=== PATIENT | male | born 1955 | race Two or more races ===

== ENCOUNTER 2025-03-10 08:32 | Inpatient (IN) | payer OTHER ==
[~2025-03-10] VITALS: Ht 175.3 cm; Wt 68.9 kg
--- NOTE | 2025-03-10 08:47 | NUR ---
SE RECIBE PACIENTE ALERTA Y ORIENTADO X3 EL CUAL REFIERE VENIR A [place] DE QUE [place] ESTADO SUPURANDO POR HERIDA POST QUIRURJICA. PACIENTE NOTIFICA QUE FUE OPERADO POR DR. TEO GARCIA DE REINIER MASA EN EL INTESTIONO EL PASADO 02/22/25. SE MIDEN S/V Y SE UBICA.
[2025-03-10] MEDS ORDERED: PIPERACILLIN/TAZOBACTAM SODIUM 3.375 GM in DEXTROSE 5 % IN WATER 100 ML IV SCH (09:38)
[2025-03-10] MEDS ORDERED: 0.9 % SODIUM CHLORIDE 500 ML IV SCH (09:45)
[2025-03-10] MEDS ORDERED: PIPERACILLIN/TAZOBACTAM SODIUM 3.375 GM VIAL IV STA (10:27)
[2025-03-10] MEDS ORDERED: FAMOTIDINE/PF 20 MG in 0.9 % SODIUM CHLORIDE 8 ML IV PUSH SCH (10:27)
[2025-03-10] MEDS ORDERED: MORPHINE SULFATE 4 MG/ML CARTRIDGE IV PRN (10:30)
[2025-03-10] MEDS ORDERED: 0.9 % SODIUM CHLORIDE 1,000 ML IV SCH (10:30)
[2025-03-10 10:44] LABS: BASO % 0.4 % (0.1-1.2); EOS # 0.03 (0.04-0.54); EOS % 0.2 % (0.7-7.0); LYMPH # 1.70 (1.18-3.74); LYMPH % 10.7 % (19.3-53.1); MEAN PLATELET VOLUME 9.60 fl (9.4-12.4); MONO # 1.25 (0.24-0.82); MONO % 7.8 % (4.7-12.5); NEUT # 12.53 (1.56-6.13); NEUT % 78.6 % (34.0-71.1); RED CELL DISTRIBUTION WIDTH 15.1 % (11.6-14.4)
[2025-03-10 10:53] VITALS: BP 102/60; O2SAT 96
[2025-03-10 11:02] LABS: INR 1.16
[2025-03-10 11:07] LABS: ALT/SGPT 70.0 U/L (12-78); AST/SGOT 65.0 U/L (15-37); BILIRUBIN TOTAL 0.42 mg/dL (0.3-1.2); BUN CREA RATIO 14.0 (7.0-25.0); CREATININE SERUM 0.81 mg/dL (0.70-1.30); GFR 94.76; GLOBULINA 5.7 G/DL (2.4-3.5); GLUCOSE FASTING 131.0 mg/dL (65-100); OSMOLALITY SERUM 271.0 MOSM/KG (275-295)
[2025-03-10 11:15] LABS: URINE APPEARANCE Clear; URINE BILIRRUBIN Negative (NEGATIVE); URINE BLOOD Negative; URINE COLOR Yellow; URINE GLUCOSE Negative (NEGATIVE); URINE KETONE Trace (NEGATIVE); URINE LEUKOCYTE Negative; URINE NITRATE Negative; URINE PROTEIN Trace (NEGATIVE); URINE UROBILINOGEN 1.0 E.U./dl
[2025-03-10 11:19] LABS: URINE BACTERIA 7.1 uL (0.0-1933); URINE CAST 1.90 uL (0.0-1.40); URINE EPITHELIAL CELLS 9.0 uL (0.0-38.8); URINE RBC 9.8 uL (0.0-20.8); URINE WBC 3.3 uL (0.0-23.2)
[2025-03-10 11:42] LABS: COVID-19 AG NEGATIVE (NEGATIVE)
[2025-03-10] MEDS ORDERED: PIPERACILLIN/TAZOBACTAM SODIUM 3.375 GM VIAL IV SCH (12:00)
[2025-03-11 00:49] VITALS: BP 103/58; O2SAT 96
[2025-03-11 07:40] LABS: BASO % 0.8 % (0.1-1.2); EOS # 0.06 (0.04-0.54); EOS % 0.5 % (0.7-7.0); LYMPH # 1.81 (1.18-3.74); LYMPH % 13.9 % (19.3-53.1); MEAN PLATELET VOLUME 9.50 fl (9.4-12.4); MONO # 1.19 (0.24-0.82); MONO % 9.1 % (4.7-12.5); NEUT # 9.57 (1.56-6.13); NEUT % 73.5 % (34.0-71.1); RED CELL DISTRIBUTION WIDTH 15.2 % (11.6-14.4)
[2025-03-11 07:57] LABS: ALT/SGPT 59.0 U/L (12-78); AST/SGOT 44.0 U/L (15-37); BILIRUBIN TOTAL 0.43 mg/dL (0.3-1.2); BUN CREA RATIO 17.0 (7.0-25.0); CREATININE SERUM 0.58 mg/dL (0.70-1.30); GFR 139.33; GLOBULINA 4.2 G/DL (2.4-3.5); GLUCOSE FASTING 91.0 mg/dL (65-100); OSMOLALITY SERUM 274.0 MOSM/KG (275-295)
[2025-03-11 08:00] VITALS: BP 101/64; O2SAT 98
[2025-03-11 08:47] LABS: BASOPHIL MAN 1.0 %; LYMPHOCYTE MAN 18.0 %; MONOCYTE MAN 7.0 %; NEUTROPHILS MAN 73.0 %
[2025-03-11 09:15] LABS: ERYTHROCYTE SEDIMENTATION RATE 92 mm/hr (0-20)
[2025-03-12] VITALS: BP 121/68; O2SAT 97
[2025-03-12 08:00] VITALS: BP 133/74; O2SAT 99
[2025-03-12 10:58] LABS: BUN CREA RATIO 14.0 (7.0-25.0); CHOL HDL RATIO 5.5 (0-5.0); CREATININE SERUM 0.58 mg/dL (0.70-1.30); GFR 139.33; GLUCOSE FASTING 70.0 mg/dL (65-100); HDL 21.0 mg/dl (40-60); LDL 74.0 mg/dl (0-130); OSMOLALITY SERUM 276.0 MOSM/KG (275-295); VLDL 19.0 (0-39)
[2025-03-12 16:00] VITALS: BP 133/71; O2SAT 99
[2025-03-12] MEDS ORDERED: VANCOMYCIN HCL 1,000 MG VIAL IV SCH (17:00)
[2025-03-12] MEDS ORDERED: AA 4.25%/CAL/LYTES/DEXT 5% 1,000 ML PERIFERAL SCH (17:00)
[2025-03-12] MEDS ORDERED: MIDAZOLAM HCL 2 MG/2 ML VIAL IV PUSH ONE (18:15)
[2025-03-12] MEDS ORDERED: fentaNYL CITRATE 50 MCG/ML AMPUL IV PUSH ONE (18:15)
[2025-03-13 01:14] VITALS: BP 130/70; O2SAT 97
[2025-03-13 08:00] VITALS: BP 125/75; O2SAT 95
[2025-03-13 17:12] VITALS: BP 117/70; O2SAT 97
[2025-03-14 02:02] VITALS: BP 106/62; O2SAT 99
[2025-03-14 06:49] LABS: BASO % 0.7 % (0.1-1.2); EOS # 0.08 (0.04-0.54); EOS % 0.8 % (0.7-7.0); LYMPH # 2.09 (1.18-3.74); LYMPH % 20.9 % (19.3-53.1); MEAN PLATELET VOLUME 9.30 fl (9.4-12.4); MONO # 1.03 (0.24-0.82); MONO % 10.3 % (4.7-12.5); NEUT # 6.66 (1.56-6.13); NEUT % 66.6 % (34.0-71.1); RED CELL DISTRIBUTION WIDTH 15.2 % (11.6-14.4)
[2025-03-14 08:00] VITALS: BP 116/69; O2SAT 97
[2025-03-14 17:32] VITALS: BP 124/65; O2SAT 97
[2025-03-15 01:52] VITALS: BP 108/70; O2SAT 97
[2025-03-15] MEDS ORDERED: VANCOMYCIN HCL 1,000 MG VIAL IV SCH (05:00)
[2025-03-15 08:00] VITALS: BP 106/63; O2SAT 99
[2025-03-15] MEDS ORDERED: VANCOMYCIN HCL 5 MG/ML REDILUIDO IV SCH (17:00)
[2025-03-15 18:18] VITALS: BP 116/69; O2SAT 97
[2025-03-16 02:18] VITALS: BP 120/55; O2SAT 98
[2025-03-16 07:00] VITALS: BP 103/59
[2025-03-16 16:00] VITALS: BP 144/66; O2SAT 99
[2025-03-16] MEDS ORDERED: AMPICILLIN SODIUM/SULBACTAM NA 3,000 MG in 0.9 % SODIUM CHLORIDE 100 ML IV SCH (20:00)
[2025-03-16] MEDS ORDERED: CIPROFLOXACIN IN 5 % DEXTROSE 400 MG/200 ML PIGGYBAG IV SCH (21:00)
[2025-03-17 01:59] VITALS: BP 122/66
[2025-03-17 08:00] VITALS: BP 114/69; O2SAT 96
[2025-03-17 16:00] VITALS: BP 130/60; O2SAT 98
[2025-03-18 01:03] VITALS: BP 113/78; O2SAT 97
[2025-03-18 10:37] VITALS: BP 119/70; O2SAT 97
[2025-03-18 16:00] VITALS: BP 115/68; O2SAT 97
[2025-03-19 01:11] VITALS: BP 131/66; O2SAT 97
[2025-03-19 07:02] LABS: BASO % 0.8 % (0.1-1.2); EOS # 0.23 (0.04-0.54); EOS % 2.7 % (0.7-7.0); LYMPH # 1.62 (1.18-3.74); LYMPH % 19.2 % (19.3-53.1); MEAN PLATELET VOLUME 9.20 fl (9.4-12.4); MONO # 0.95 (0.24-0.82); MONO % 11.2 % (4.7-12.5); NEUT # 5.55 (1.56-6.13); NEUT % 65.7 % (34.0-71.1); RED CELL DISTRIBUTION WIDTH 15.8 % (11.6-14.4)
[2025-03-19 07:26] LABS: INR 1.13
[2025-03-19 07:29] LABS: ALT/SGPT 83 U/L (12-78); AST/SGOT 45 U/L (15-37); BILIRUBIN TOTAL 0.23 mg/dL (0.3-1.2); BILIRUBIN,CONJUGATED < 0.10 mg/dL (0.0-0.2); BUN CREA RATIO 16 (7.0-25.0); CHOL HDL RATIO 4.3 (0-5.0); CREATININE SERUM 0.74 mg/dL (0.70-1.30); GFR 105.18; GLOBULINA 4.1 G/DL (2.4-3.5); GLUCOSE FASTING 107 mg/dL (65-100); HDL 32 mg/dl (40-60); LDL 84 mg/dl (0-130); OSMOLALITY SERUM 280 MOSM/KG (275-295); VLDL 21 (0-39)
[2025-03-19 08:00] VITALS: BP 112/65; O2SAT 99
[2025-03-19 09:58] LABS: UREA CLEARANCE 30.7 ML/MIN
[2025-03-19 16:00] VITALS: BP 127/70; O2SAT 99
[2025-03-20 01:19] VITALS: BP 118/68; O2SAT 96
[2025-03-20 08:51] VITALS: BP 144/72; O2SAT 100
[2025-03-20] MEDS ORDERED: DIATRIZOATE MEGLUMINE, SODIUM 30 ML BOTTLE PO NR (09:20)
[2025-03-20 16:00] VITALS: BP 141/82; O2SAT 98
[2025-03-21 00:29] VITALS: BP 114/73; O2SAT 99
[2025-03-21 07:57] LABS: BASO % 1.0 % (0.1-1.2); EOS # 0.17 (0.04-0.54); EOS % 2.4 % (0.7-7.0); LYMPH # 1.21 (1.18-3.74); LYMPH % 17.0 % (19.3-53.1); MEAN PLATELET VOLUME 9.50 fl (9.4-12.4); MONO # 0.85 (0.24-0.82); MONO % 11.9 % (4.7-12.5); NEUT # 4.78 (1.56-6.13); NEUT % 67.1 % (34.0-71.1); RED CELL DISTRIBUTION WIDTH 15.9 % (11.6-14.4)
[2025-03-21 08:39] LABS: BUN CREA RATIO 15.0 (7.0-25.0); CREATININE SERUM 0.88 mg/dL (0.70-1.30); GFR 86.12; GLUCOSE FASTING 103.0 mg/dL (65-100); OSMOLALITY SERUM 278.0 MOSM/KG (275-295)
[2025-03-21 09:37] VITALS: BP 113/64; O2SAT 97
[2025-03-21 17:00] VITALS: BP 131/69; O2SAT 97
[2025-03-22 00:55] VITALS: BP 121/71; O2SAT 100
[2025-03-22 08:00] VITALS: BP 116/69; O2SAT 97
[2025-03-22 16:00] VITALS: BP 148/71; O2SAT 98
[2025-03-23 06:48] LABS: BASO % 0.9 % (0.1-1.2); EOS # 0.14 (0.04-0.54); EOS % 2.1 % (0.7-7.0); LYMPH # 1.11 (1.18-3.74); LYMPH % 16.6 % (19.3-53.1); MEAN PLATELET VOLUME 10.00 fl (9.4-12.4); MONO # 0.78 (0.24-0.82); MONO % 11.7 % (4.7-12.5); NEUT # 4.56 (1.56-6.13); NEUT % 68.1 % (34.0-71.1); RED CELL DISTRIBUTION WIDTH 15.9 % (11.6-14.4)
[2025-03-23 07:28] LABS: BUN CREA RATIO 17.0 (7.0-25.0); CREATININE SERUM 0.72 mg/dL (0.70-1.30); GFR 108.56; GLUCOSE FASTING 121.0 mg/dL (65-100); OSMOLALITY SERUM 277.0 MOSM/KG (275-295)
[2025-03-23 08:00] VITALS: BP 123/73; O2SAT 97
[2025-03-23 18:36] VITALS: BP 121/69; O2SAT 97
[2025-03-24 01:02] VITALS: BP 113/71; O2SAT 97
[2025-03-24 16:00] VITALS: BP 121/71; O2SAT 99
[2025-03-25 01:35] VITALS: BP 131/78; O2SAT 99
[2025-03-25 08:30] VITALS: BP 123/74; O2SAT 99
[2025-03-25 16:00] VITALS: BP 106/56; O2SAT 98
[2025-03-26 00:36] VITALS: BP 134/74; O2SAT 100
[2025-03-26 07:50] LABS: BASO % 1.1 % (0.1-1.2); EOS # 0.09 (0.04-0.54); EOS % 1.5 % (0.7-7.0); LYMPH # 1.37 (1.18-3.74); LYMPH % 22.1 % (19.3-53.1); MEAN PLATELET VOLUME 9.80 fl (9.4-12.4); MONO # 0.69 (0.24-0.82); MONO % 11.1 % (4.7-12.5); NEUT # 3.96 (1.56-6.13); NEUT % 63.9 % (34.0-71.1); RED CELL DISTRIBUTION WIDTH 16.2 % (11.6-14.4)
[2025-03-26 08:17] LABS: INR 1.15
[2025-03-26 08:30] LABS: ALT/SGPT 45 U/L (12-78); AST/SGOT 32 U/L (15-37); BILIRUBIN TOTAL 0.22 mg/dL (0.3-1.2); BILIRUBIN,CONJUGATED < 0.10 mg/dL (0.0-0.2); BUN CREA RATIO 15 (7.0-25.0); CHOL HDL RATIO 3.0 (0-5.0); CREATININE SERUM 0.84 mg/dL (0.70-1.30); GFR 90.87; GLOBULINA 4.5 G/DL (2.4-3.5); GLUCOSE FASTING 124 mg/dL (65-100); HDL 45 mg/dl (40-60); LDL 77 mg/dl (0-130); OSMOLALITY SERUM 275 MOSM/KG (275-295); VLDL 13 (0-39)
[2025-03-26 08:43] LABS: UREA CLEARANCE 45.2 ML/MIN
[2025-03-26 08:53] VITALS: BP 119/74; O2SAT 100
[2025-03-26] MEDS ORDERED: FAMOTIDINE/PF 20 MG in 0.9 % SODIUM CHLORIDE 8 ML IV PUSH SCH (09:41)
[2025-03-26 17:18] VITALS: BP 126/77; O2SAT 100
[2025-03-27 01:52] VITALS: BP 115/71; O2SAT 100
[2025-03-27 08:52] VITALS: BP 132/64; O2SAT 98
[2025-03-27] MEDS ORDERED: DIATRIZOATE MEGLUMINE, SODIUM 30 ML BOTTLE PO NR (09:00)
[2025-03-27 17:27] VITALS: BP 122/63; O2SAT 98
[2025-03-28] VITALS: BP 131/68; O2SAT 98
[2025-03-28 09:19] VITALS: BP 125/73; O2SAT 98
[2025-03-28 17:38] VITALS: BP 126/59; O2SAT 98
[2025-03-29 01:18] VITALS: BP 114/75; O2SAT 100
[2025-03-29 07:02] LABS: BASO % 1.2 % (0.1-1.2); EOS # 0.17 (0.04-0.54); EOS % 3.4 % (0.7-7.0); LYMPH # 1.34 (1.18-3.74); LYMPH % 26.9 % (19.3-53.1); MEAN PLATELET VOLUME 10.10 fl (9.4-12.4); MONO # 0.69 (0.24-0.82); NEUT # 2.72 (1.56-6.13); NEUT % 54.5 % (34.0-71.1); RED CELL DISTRIBUTION WIDTH 16.0 % (11.6-14.4)
[2025-03-29 07:07] LABS: MONO % 13.8 % (4.7-12.5)
[2025-03-29 07:40] LABS: BUN CREA RATIO 14.0 (7.0-25.0); CREATININE SERUM 0.77 mg/dL (0.70-1.30); GFR 100.47; GLUCOSE FASTING 118.0 mg/dL (65-100); OSMOLALITY SERUM 276.0 MOSM/KG (275-295)
[2025-03-29] MEDS ORDERED: SODIUM CL 0.9% 100 ML IV.SOLN IV ONE (07:46)
[2025-03-29 16:00] VITALS: BP 107/69; O2SAT 98
[2025-03-30 00:31] VITALS: BP 132/73; O2SAT 100
[2025-03-30 08:00] VITALS: BP 117/64; O2SAT 98
[2025-03-30 16:36] VITALS: BP 120/71; O2SAT 99
[2025-03-31 01:16] VITALS: BP 115/67; O2SAT 100
[2025-03-31 08:00] VITALS: BP 117/60; O2SAT 97
[2025-03-31 17:00] VITALS: BP 124/66; O2SAT 100
[2025-04-01 01:18] VITALS: BP 113/65; O2SAT 98
[2025-04-01 08:00] VITALS: BP 134/76; O2SAT 99
[2025-04-01 16:33] VITALS: BP 148/77; O2SAT 98
[2025-04-01] MEDS ORDERED: FAMOTIDINE/PF 20 MG in 0.9 % SODIUM CHLORIDE 8 ML IV PUSH SCH (21:00)
[2025-04-02 00:31] VITALS: BP 120/75; O2SAT 99
[2025-04-02 06:13] LABS: BASO % 0.8 % (0.1-1.2); EOS # 0.27 (0.04-0.54); EOS % 3.8 % (0.7-7.0); LYMPH # 1.55 (1.18-3.74); LYMPH % 21.6 % (19.3-53.1); MEAN PLATELET VOLUME 10.40 fl (9.4-12.4); MONO # 1.03 (0.24-0.82); NEUT # 4.26 (1.56-6.13); NEUT % 59.4 % (34.0-71.1); RED CELL DISTRIBUTION WIDTH 16.0 % (11.6-14.4)
[2025-04-02 06:41] LABS: MONO % 14.3 % (4.7-12.5)
[2025-04-02 06:51] LABS: INR 1.07
[2025-04-02 07:18] LABS: ALT/SGPT 27 U/L (12-78); AST/SGOT 30 U/L (15-37); BILIRUBIN TOTAL 0.34 mg/dL (0.3-1.2); BILIRUBIN,CONJUGATED < 0.10 mg/dL (0.0-0.2); BUN CREA RATIO 19 (7.0-25.0); CHOL HDL RATIO 3.8 (0-5.0); CREATININE SERUM 0.70 mg/dL (0.70-1.30); GFR 112.15; GLOBULINA 3.8 G/DL (2.4-3.5); GLUCOSE FASTING 122 mg/dL (65-100); HDL 32 mg/dl (40-60); LDL 72 mg/dl (0-130); OSMOLALITY SERUM 277 MOSM/KG (275-295); VLDL 17 (0-39)
[2025-04-02 08:02] LABS: UREA CLEARANCE 40.0 ML/MIN
[2025-04-02 08:30] VITALS: BP 106/70; O2SAT 99
[2025-04-02 16:00] VITALS: BP 130/75; O2SAT 99
[2025-04-03 00:26] VITALS: BP 107/64; O2SAT 100
[2025-04-03 08:00] VITALS: BP 104/63; O2SAT 99
[2025-04-03] MEDS ORDERED: DIATRIZOATE MEGLUMINE, SODIUM 30 ML BOTTLE PO NR (10:00)
[2025-04-03] MEDS ORDERED: SOD FERRIC GLUC COMPLX/SUCROSE 62.5 MG in 0.9 % SODIUM CHLORIDE 50 ML IV SCH (17:00)
[2025-04-03 17:27] VITALS: BP 117/68; O2SAT 98
[2025-04-04 00:30] VITALS: BP 114/62; O2SAT 97
[2025-04-04 09:43] VITALS: BP 110/75; O2SAT 99
[2025-04-04 16:00] VITALS: BP 119/69; O2SAT 99
[2025-04-05 00:42] VITALS: BP 115/59; O2SAT 98
[2025-04-05] MEDS ORDERED: ENOXAPARIN SODIUM 40 MG/0.4 ML SYRINGE SUBCUTANEO SCH (09:00)
[2025-04-05 09:02] VITALS: BP 118/68; O2SAT 98
[2025-04-05 16:22] VITALS: BP 127/69; O2SAT 96
[2025-04-05] MEDS ORDERED: AMINO ACIDS/PROTEIN HYDROLYS 30 ML BLIST.PACK PO SCH (19:09)
[2025-04-05] MEDS ORDERED: VITAMIN B COMPLEX/LYSINE 15 ML BLIST.PACK PO SCH (19:10)
[2025-04-06 01:32] VITALS: BP 113/66; O2SAT 100
[2025-04-06 07:07] LABS: BASO % 1.1 % (0.1-1.2); EOS # 0.21 (0.04-0.54); EOS % 3.9 % (0.7-7.0); LYMPH # 2.02 (1.18-3.74); LYMPH % 37.3 % (19.3-53.1); MEAN PLATELET VOLUME 10.10 fl (9.4-12.4); MONO # 0.78 (0.24-0.82); NEUT # 2.33 (1.56-6.13); NEUT % 43.1 % (34.0-71.1); RED CELL DISTRIBUTION WIDTH 15.9 % (11.6-14.4)
[2025-04-06 07:17] LABS: MONO % 14.4 % (4.7-12.5)
[2025-04-06 07:53] LABS: ALT/SGPT 19.0 U/L (12-78); AST/SGOT 19.0 U/L (15-37); BILIRUBIN TOTAL 0.29 mg/dL (0.3-1.2); BUN CREA RATIO 21.0 (7.0-25.0); CREATININE SERUM 0.71 mg/dL (0.70-1.30); GFR 110.33; GLOBULINA 4.0 G/DL (2.4-3.5); GLUCOSE FASTING 104.0 mg/dL (65-100); OSMOLALITY SERUM 275.0 MOSM/KG (275-295)
[2025-04-06 17:25] VITALS: BP 118/72; O2SAT 99
[2025-04-07 01:14] VITALS: BP 109/66; O2SAT 100
[2025-04-07 08:48] VITALS: BP 113/75; O2SAT 99
[2025-04-07 16:20] VITALS: BP 121/71; O2SAT 99
[2025-04-08 00:30] VITALS: BP 111/66; O2SAT 99
[2025-04-08 08:51] VITALS: BP 91/71; O2SAT 98
[2025-04-08 16:12] VITALS: BP 122/62; O2SAT 99
[2025-04-08] MEDS ORDERED: HYOSCYAMINE SULFATE 0.125 MG TAB.SUBL SL SCH (17:00)
[2025-04-09 00:59] VITALS: BP 126/71; O2SAT 100
[2025-04-09 06:31] LABS: BASO % 0.9 % (0.1-1.2); EOS # 0.29 (0.04-0.54); EOS % 5.0 % (0.7-7.0); LYMPH # 1.61 (1.18-3.74); LYMPH % 28.0 % (19.3-53.1); MEAN PLATELET VOLUME 10.30 fl (9.4-12.4); MONO # 1.02 (0.24-0.82); NEUT # 2.78 (1.56-6.13); NEUT % 48.2 % (34.0-71.1); RED CELL DISTRIBUTION WIDTH 15.9 % (11.6-14.4)
[2025-04-09 06:32] LABS: MONO % 17.7 % (4.7-12.5)
[2025-04-09 07:27] LABS: INR 1.13
[2025-04-09 07:42] LABS: ALT/SGPT 30 U/L (12-78); AST/SGOT 34 U/L (15-37); BILIRUBIN TOTAL 0.29 mg/dL (0.3-1.2); BILIRUBIN,CONJUGATED < 0.10 mg/dL (0.0-0.2); BUN CREA RATIO 28 (7.0-25.0); CHOL HDL RATIO 3.1 (0-5.0); CREATININE SERUM 0.75 mg/dL (0.70-1.30); GFR 103.56; GLOBULINA 3.7 G/DL (2.4-3.5); GLUCOSE FASTING 109 mg/dL (65-100); HDL 39 mg/dl (40-60); LDL 61 mg/dl (0-130); OSMOLALITY SERUM 279 MOSM/KG (275-295); VLDL 19 (0-39)
[2025-04-09 09:27] LABS: UREA CLEARANCE 35.6 ML/MIN
[2025-04-09] MEDS ORDERED: DIATRIZOATE MEGLUMINE, SODIUM 30 ML BOTTLE PO NR (12:15)
[2025-04-09 16:00] VITALS: BP 135/75; O2SAT 99
[2025-04-10 01:01] VITALS: BP 127/74; O2SAT 99
[2025-04-10 09:46] VITALS: BP 104/66; O2SAT 98
[2025-04-10 17:08] VITALS: BP 103/64; O2SAT 95
[2025-04-10] MEDS ORDERED: PRAMOXINE HCL/CALAMINE 180 ML BOTTLE TOP SCH (21:30)
[2025-04-11 01:30] VITALS: BP 109/76; O2SAT 99
[2025-04-11 08:00] VITALS: BP 103/60; O2SAT 98
[2025-04-11] MEDS ORDERED: PRAMOXINE HCL/CALAMINE 180 ML BOTTLE TOP SCH (13:00)
[2025-04-11 17:33] VITALS: BP 101/61; O2SAT 97
[2025-04-12 00:39] VITALS: BP 108/61; O2SAT 99
[2025-04-12 08:00] VITALS: BP 92/59; O2SAT 100
[2025-04-12] MEDS ORDERED: TRAM1TAB98 PO (08:27)
== END 2025-04-12 16:32 | disposition home or self-care (01) | DRG 862 ==
LOC: ER 08:32 → SURH 14:24
PROVIDERS: Emergency Medicine; Internal Medicine; Internal Medicine Infectious Disease; ADMIT Surgery; ATTEND Surgery
PROC: 02HV33Z Insertion of Infusion Device into Superior Vena Cava, Percutaneous Approach (ICD-10-PCS; 2025-03-10)
PROC: B548ZZA Ultrasonography of Superior Vena Cava, Guidance (ICD-10-PCS; 2025-03-10)
PROC: 3E0436Z Introduction of Nutritional Substance into Central Vein, Percutaneous Approach (ICD-10-PCS; 2025-03-10)
PROC: BW21YZZ Computerized Tomography (CT Scan) of Abdomen and Pelvis using Other Contrast (ICD-10-PCS; 2025-03-10)
PROC: 0W9G30Z Drainage of Peritoneal Cavity with Drainage Device, Percutaneous Approach (ICD-10-PCS; principal; 2025-03-12)
PROC: 8E0ZXY6 Isolation (ICD-10-PCS; 2025-03-14)
PROC: B020YZZ Computerized Tomography (CT Scan) of Brain using Other Contrast (ICD-10-PCS; 2025-03-20)
PROC: B020YZZ Computerized Tomography (CT Scan) of Brain using Other Contrast (ICD-10-PCS; 2025-03-27)
PROC: B020YZZ Computerized Tomography (CT Scan) of Brain using Other Contrast (ICD-10-PCS; 2025-04-03)
PROC: B020YZZ Computerized Tomography (CT Scan) of Brain using Other Contrast (ICD-10-PCS; 2025-04-09)
DX: T81.43XA Infection following a procedure, organ and space surgical site, initial encounter (principal); K65.1 Peritoneal abscess; L03.311 Cellulitis of abdominal wall; K63.2 Fistula of intestine; T81.320A Disruption or dehiscence of gastrointestinal tract anastomosis, repair, or closure, initial encounter; C20 Malignant neoplasm of rectum; K56.7 Ileus, unspecified; D72.829 Elevated white blood cell count, unspecified; D75.838 Other thrombocytosis; E78.5 Hyperlipidemia, unspecified; Y83.2 Surgical operation with anastomosis, bypass or graft as the cause of abnormal reaction of the patient, or of later complication, without mention of misadventure at the time of the procedure; B96.20 Unspecified Escherichia coli [E. coli] as the cause of diseases classified elsewhere; B96.4 Proteus (mirabilis) (morganii) as the cause of diseases classified elsewhere; B95.2 Enterococcus as the cause of diseases classified elsewhere; B96.89 Other specified bacterial agents as the cause of diseases classified elsewhere